=== PATIENT | female | born 1965 | race Caucasian/White ===

== ENCOUNTER 2020-11-08 10:25 | Outpatient (CLI) | payer OTHER, SELFPAY ==
--- NOTE | ~2020-11-08 | MM_ITS ---
EXAMINATION: MM screening cabrera BI w janelle HISTORY: Screening mammogram TECHNIQUE: Craniocaudal and mediolateral oblique 3-D tomosynthesis images were obtained and synthetic 2-D images were generated. CAD analysis was submitted and interpreted. COMPARISON: , 12/27/2016, 12/16/2015 bilateral digital screening mammogram examinations BREAST PARENCHYMAL COMPOSITION: The breasts are heterogeneously dense, which may obscure small masses . FINDINGS: There is no evidence of suspicious mass, calcification, or architectural distortion to sugg est malignancy in either breast. There has been no suspicious interval change. IMPRESSION: 1. No mammographic evidence of malignancy. 2. Recommend routine screening mammography in one year. BI-RADS Category 1: Negative Reviewed, dictated and finalized at location A.
== END 2020-11-08 10:26 | disposition home or self-care (01) ==
LOC: ANHIMG 10:28
PROVIDERS: PCP Family Medicine; Visit Provider Family Medicine
DX: Z12.31 Encounter for screening mammogram for malignant neoplasm of breast (principal)
CPT/HCPCS: 77063; 77067

== ENCOUNTER 2021-11-30 23:13 | Observation (INO) | payer OTHER, SELFPAY ==
--- NOTE | ~2021-11-30 | US_ITS ---
EXAMINATION: US carotid duplex BI DATE: 12/01/2021 16:38 INDICATION: Left hemiparesis. Transient ischemic attack. TECHNIQUE: Grayscale, color Doppler, and pulsed Doppler images of the cervical carotid arteries were obtained. The degree of vessel stenosis is placed in one of the following categories: normal, <50%, 5 0-69%, >=70% but less than near-occlusion, near-occlusion, or total occlusion. Note that percent sten osis relative to normal distal artery lumen diameter is indirectly measured from velocity measurement s as described by Nestor, et al. Radiology 2003; 229:340-346. COMPARISON: None. FINDINGS: RIGHT: The right common carotid artery (CCA) peak systolic velocity (PSV) is 74 cm/s. The right internal car otid artery (ICA) PSV is 67 cm/s. The right ICA end-diastolic velocity (EDV) is 29 cm/s. The right IC A/CCA PSV ratio is 0.9. Grayscale and color Doppler images yield an estimate of <50% diameter reducti on from plaque in the ICA. There is antegrade flow in the right vertebral artery. LEFT: The left CCA PSV is 84 cm/s. The left ICA PSV is 86 cm/s. The left ICA EDV is 29 cm/s. The left ICA/C CA PSV ratio is 1.0. Grayscale and color Doppler images yield an estimate of <50% diameter reduction from plaque in the ICA. There is antegrade flow in the left vertebral artery. IMPRESSION: 1. <50% stenosis in the right internal carotid artery. 2. <50% stenosis in the left internal carotid artery. Reviewed, dictated and finalized at location B.
--- NOTE | ~2021-11-30 | CT_ITS ---
EXAMINATION: CT brain wo con DATE: 12/01/2021 00:17 INDICATION: Transient ischemic episode with left-sided deficits TECHNIQUE: Computed tomography (CT) of the head was performed without intravenous contrast. Sagittal and coronal reconstructions were performed. The mA was adjusted according to patient size. Iterative reconstruction technique was employed. The dose-length product was 605.33 mGy-cm. COMPARISON: None FINDINGS: No acute intracranial hemorrhage, acute infarction or abnormal extra axial fluid collection. Ventricl es are normal and symmetric. No mass/mass effect. The orbits, paranasal sinuses and mastoid air cells are normal. IMPRESSION: 1. Normal head CT. Reviewed, dictated and finalized at location A. IMPRESSION: 1. Normal head CT.
--- NOTE | ~2021-11-30 | XR_ITS ---
EXAMINATION: XR chest 2V DATE: 12/01/2021 00:19 INDICATION: Stroke protocol TECHNIQUE: PA and lateral views of the chest were obtained. COMPARISON: Chest radiograph dated 05/01/[address] dated 09/01/2018 FINDINGS: Chronic elevation of the left hemidiaphragm with mild compressive atelectasis along the left lung bas e. Mild linear discoid atelectasis medial right lung base. No other airspace opacities, pulmonary david ma, pleural effusion or pneumothorax. The cardiomediastinal silhouette is normal. Visualized bones an d soft tissues are unremarkable. IMPRESSION: 1. Chronic elevation left hemidiaphragm with mild bibasilar atelectasis. No other acute cardiopulmona ry disease. Reviewed, dictated and finalized at location A. IMPRESSION: 1. Chronic elevation left hemidiaphragm with mild bibasilar atelectasis. No oth er acute cardiopulmonary disease.
--- NOTE | ~2021-11-30 | MR_ITS ---
EXAMINATION: MR brain/brain stem wo/w con DATE: 12/01/2021 11:29 INDICATION: Transient ischemic attack. Left sided weakness and numbness. TECHNIQUE: Magnetic resonance imaging (MRI) of the brain and brainstem was performed without and with 15 mL MultiHance intravenous contrast. COMPARISON: Head CT 12/01/2021 FINDINGS: There is no intracranial hemorrhage, acute infarction, or abnormal intracranial mass lesion . The ventricles are normal in size. The mastoid air cells are normal. There is mild mucosal thickeni ng in the ethmoid sinuses. The orbits are normal. IMPRESSION: 1. Normal brain. Reviewed, dictated and finalized at location B. IMPRESSION: 1. Normal brain.
[2021-11-30 23:19] VITALS: BP 158/112; PULSE 85; RESP 16; TEMP 36.3; O2SAT 95
--- NOTE | 2021-11-30 23:35 | ED.WEAKNESS ---
HPI - Weakness General Chief complaint: Weakness Stated complaint: BACK PAIN, LT NUMBNESS Time Seen by Provider: 11/30/21 23:35 History of Present Illness HPI Narrative: The patient is a 56-year-old female with a history of thymic cancer status postresection, immunotherapy, agammaglobulinemia w/ monthly IVIG infusions, presenting to the emergency department for evaluation of intermittent left-sided weakness and numbness. Patient states initial symptoms began yesterday evening when patient was cooking dinner, she had acute onset left-sided lower facial numbness, weakness, decrease in director of retail strength in her left upper extremity, weakness and numbness in her left leg. Patient states that symptoms lasted for approximately 30 minutes before resolving on their own. She did call EMS and when EMS had arrived, she did refuse transport and had a reassuring exam. Patient did not fall. No slurred speech. No noticeable facial droop per family. Patient states that the symptoms then recurred tonight approximately 1 hour ago but have since resolved. The second episode did not last longer than 10 minutes. Patient states that she cannot feel her left leg and cannot move her left hand. Patient denies history of anticoagulation. She states that her thymic cancer was resected and she has no known active disease. She denies headache, vision changes, chest pain, palpitations, shortness of breath. No nausea or vomiting. Surgical history: Thymoma resection Related Data Home Medications Medication Instructions Recorded Confirmed prednisolone sodium phosphate 5 mg 5 mg PO QID 03/20/21 07/24/21 base/5 mL (6.7 mg/5 mL) oral soln vitamin B complex 1 tablet PO DAILY 03/20/21 07/24/21 Allergies Allergy/AdvReac Type Severity Reaction Status Date / Time acetaminophen AdvReac Unknown Unknown Verified 11/30/21 23:31 [From Lorcet (hydrocodone)] erythromycin base AdvReac Unknown Unknown Verified 11/30/21 23:31 hydrocodone AdvReac Unknown Unknown Verified 11/30/21 23:31 [From Lorcet (hydrocodone)] Review of Systems Review of Systems: CONSTITUTIONAL: Denies fever, chills, or sweats. EYES: Denies visual changes, redness, or discharge. ENT: Denies rhinorrhea, congestion, sore throat, or otalgia. CARDIOVASCULAR: Denies chest pain, palpitations, or edema. RESPIRATORY: Denies cough or dyspnea. GASTROINTESTINAL: Denies abdominal pain, nausea, vomiting, or diarrhea. GENITOURINARY: Denies dysuria or hematuria. SKIN: Denies rash or itching. MUSCULOSKELETAL: Denies back pain, joint pain, or myalgia. NEUROLOGIC: Denies headache, denies current numbness or weakness. [facility] Past Medical History Medical History (Updated 12/01/21 @ 04:04 by Nancy Weinstein MD) Agammaglobulinemia, acquired Good syndrome History of abnormal cervical Pap smear Low serum cortisol level Migraine Normal colonoscopy 04/20/19 Dr. Almaguer repeat in 10 years Thrombocytopenia Thymoma Family History Family History Sibling Family history of mental disorder Depression Hypertension Family history of elevated blood lipids Family history of cardiovascular disease Father Hypertension Family history of elevated blood lipids Mother Hypertension Family history of elevated blood lipids Family history of cardiovascular disease Grandparent Cerebrovascular accident Other Family history of hypercholesterolemia Social History Social History Alcohol intake: current Exam Narrative: GENERAL: Awake, alert, conversant HEAD: Normocephalic, atraumatic. EYES: PERRLA and EOMI. ENT: Nares clear, no rhinorrhea or epistaxis. Mucous membranes moist. NECK: Supple. CHEST: No respiratory distress, breathing even and non labored HEART: Regular rate, sinus rhythm ABDOMEN:Non distended, non tender EXTREMITIES: Normal range of motion. No edema. SKIN: Warm, dry, no
[2021-12-01] VITALS (7 sets, daily range): BP systolic 118–149; BP diastolic 81–95; PULSE 75–96; RESP 18; TEMP 36.4; O2SAT 97–100; BMI 26.2
--- NOTE | 2021-12-01 | ECG_ITS ---
Measurements Intervals [place] Rate: 79 P: 34 RI: 171 QRS: -49 QRSD: 85 T: -11 QT: 358 QTc: 411 Interpretive Statements SINUS RHYTHM LOW QRS VOLTAGE IN PRECORDIAL LEADS [QRS DEFLECTION < 1.0 mV IN CHEST LEADS] POSSIBLE RIGHT VENTRICULAR CONDUCTION DELAY [RSR (QR) IN V1/V2] LEFT ANTERIOR FASCICULAR BLOCK [QRS AXIS <= -45, QR IN I, RS IN II] POSSIBLE ANTERIOR MYOCARDIAL INFARCTION , OLD ABNORMAL ECG NO PREVIOUS ECG AVAILABLE FOR COMPARISON Electronically Signed On 12-01-2021 14:37:15 CDT by Elder Noble M.D.
--- NOTE | 2021-12-01 | ECHO_ITS ---
Patient Info Name: Candace Rojas Age: 56 years : 1965 Gender: Female Ht: 64 in Wt: 152 lbs BSA: 1.78 m2 HR: 86 bpm BP: 149 / 95 mmHg Technical Quality: Fair Exam Date: 12/01/2021 12:26 PM Exam Location: [facility] Pulmonary Exam Room: [facility] Patient Status: Outpatient Admit Date: 12/01/2021 Staff Ordering Physician: Elder Tucker MD Business Intelligence Reporting Analyst: Arianne Tran RDCS Attending Provider: Mckinley Bowden MD Referring Physician: Garrett RYAN; Exam Type: CA echo doppler w bubble study Study Info Indications - TIA Complete two-dimensional, color flow and Doppler transthoracic echocardiogram is performed with agitated saline. Contrast/Agitated Saline Contrast/Ag. Saline: Agitated Saline Amount: 20.00 ml Existing IV Access: Yes IV Access Condition: patent with no signs of infiltration Summary 1. Left ventricular chamber dimension is normal. 2. Left ventricular systolic function is normal, estimated at 65-70%. 3. The left ventricular diastolic function is grade I diastolic dysfunction. 4. E/e' 9 is minimally elevated. 5. There is trace tricuspid valve regurgitation. 6. No pulmonary hypertension, estimated pulmonary arterial systolic pressure is 38 mmHg. Left Ventricle E/e' 9 is minimally elevated. Left ventricular chamber dimension is normal. Left ventricular systolic function is normal, estimated at 65-70%. The left ventricular diastolic function is grade I diastolic dysfunction. Right Ventricle Right ventricular chamber dimension is normal. Right ventricular systolic function is normal. Left Atria Left atrial chamber dimension is normal. Right Atria Right atrial chamber dimension is normal. Atrial Septum Agitated saline injection with and without valsalva maneuver opacified right cardiac chambers without shunt to left cardiac chambers. Intact interatrial septum visualized by 2D and agitated saline imaging. Aortic Valve The aortic valve is trileaflet. There is no aortic valve stenosis. There is no aortic valve regurgitation. Pulmonic Valve There is no pulmonic regurgitation. Mitral Valve There is no mitral valve stenosis. There is no mitral valve regurgitation. Tricuspid Valve There is trace tricuspid valve regurgitation. No pulmonary hypertension, estimated pulmonary arterial systolic pressure is 38 mmHg. Pericardium/Pleural There is no pericardial effusion. Inferior Vena Cava Normal inferior vena cava with >50% collapse upon inspiration consistent with normal right atrial pressure, 5 mmHg. Aorta The aortic root size at the sinus of Valsalva is normal. Left Ventricular Outflow Tract Name Value Normal LVOT 2D LVOT Diameter 2.0 cm LVOT Doppler LVOT Peak Gradient 3 mmHg LVOT Mean Gradient 2 mmHg LVOT VTI 19 cm LVOT VTI/AV VTI Ratio 0.9 LVOT Stroke Volume 59 ml LVOT CO 12.1 l/min LVOT CI
[2021-12-01] MEDS: SODIUM CHLORIDE 0.9% IV 1,000 ML 999 ML IV CONT (00:21)
[2021-12-01 00:34] LABS: Glucose Point of Care 121 mg/dl (65-105)
[2021-12-01 00:38] LABS: Basophils Percent Auto 0.1 % (0.2-1.2); Hematocrit 41.8 % (37.0-47.0); Hemoglobin 13.8 g/dL (12.0-15.0); Immature Granulocyte Absolute 0.01 K/mm3 (0.00-0.031); Immature Granulocyte Percent A 0.1 % (0-0.5); Lymphocytes Absolute Auto 1.33 K/mm3 (0.9-3.2); Lymphocytes Percent Auto 19.2 % (18.3-44.2); Mean Corpuscular Hemoglobin 29.9 pg (26-34); Mean Corpuscular Volume 90.5 fl (80-100); Mean Platelet Volume 9.9 fl (7.4-10.4); Monocytes Absolute Auto 0.5 K/mm3 (0.1-0.6); Monocytes Percent Auto 7.2 % (2.6-8.5); Neutrophils Absolute Auto 5.1 K/mm3 (1.3-6.7); Neutrophils Percent Auto 73.4 % (45.5-73.1); Platelet Count Result 211 k/mm3 (150-375); Red Blood Count 4.62 M/mm3 (4.2-5.4); Red Cell Distribution Width 12.9 % (11.5-14.5); White Blood Count 6.9 K/mm3 (4.5-10.0)
[2021-12-01 00:48] LABS: Prothrombin Time 12.6 Seconds (11.1-14.7)
[2021-12-01 00:49] LABS: Partial Thromboplastin Time 27.5 SECONDS (22.3-36.8)
[2021-12-01 00:55] LABS: Anion Gap 9 mmol/L (8-16); Blood Urea Nitrogen 19 mg/dL (7-17); Calcium 9.3 mg/dL (8.4-10.2); Carbon Dioxide 26 mmol/L (22-30); Chloride 103 mmol/L (98-107); Estimated Glomerular Filt Rate > 60; Glucose 106 mg/dL (65-110); Potassium 3.8 mmol/L (3.4-5.0); Sodium 138 mmol/L (137-145)
[2021-12-01 03:51] LABS: Troponin I < 0.012 ng/mL (0.000-0.034)
[2021-12-01 03:53] LABS: SARS-CoV-2 RNA PCR Negative
--- NOTE | 2021-12-01 04:54 | ADMGEN ---
This patient, Candace Rojas, was admitted to [facility] Surg Room 332-01. Patient/family oriented to hospital policies and general routines including ID bracelet, bed and alarms, visiting hours, pain management, procedures, bathroom and other care routines, personal items, smoking policy, room service/diet, and visiting hours. Information on how to activate the Rapid Response Team has been discussed. Patient/Family are encouraged to report perceived risks to care and to ask questions if they do not understand what they are told or what they should do.
[2021-12-01] MEDS: ASPIRIN 81 MG CHEWABLE TABLET PO (08:37)
--- NOTE | 2021-12-01 10:58 | PCOTNOTE ---
Attempted to see for OT evaluation. Patient off floor for testing. Will continue to attempt.
--- NOTE | 2021-12-01 11:02 | PM.IMHP ---
H&P: HPI History of Present Illness Date/Time: 12/01/21 11:02 Chief Complaint: Left-sided arm and leg weakness The patient is a 56-year-old female with a history of thymic cancer status postresection, immunotherapy, agammaglobulinemia w/ monthly IVIG infusions, presenting to the emergency department for evaluation of intermittent left-sided weakness and numbness.? 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 Patient states that symptoms lasted for approximately 30 minutes before resolving on their own.? She did call EMS and when EMS had arrived, she did refuse transport and had a reassuring exam.? Patient did not fall.? No slurred speech.? No noticeable facial droop per family.? Patient states that the symptoms then recurred tonight approximately 1 hour ago but have since resolved.? The second episode did not last longer than 10 minutes.? Patient states that she cannot feel her left leg and cannot move her left hand.? Patient denies history of anticoagulation.? She states that her thymic cancer was resected and she has no known active disease.? She denies headache, vision changes, chest pain, palpitations, shortness of breath.? No nausea or vomiting. Review of Systems Review of Systems: 10 point ROS negative except as stated in HPI / Subjective PMFSH Past Medical History Medical History (Updated 12/01/21 @ 04:04 by Nancy Weinstein MD) Agammaglobulinemia, acquired Good syndrome History of abnormal cervical Pap smear Low serum cortisol level Migraine Normal colonoscopy 04/20/19 Dr. Almaguer repeat in 10 years Thrombocytopenia Thymoma Family History Family History (Updated 12/01/21 @ 04:56 by Rima Delgado RN) Sibling Family history of cardiovascular disease Family history of elevated blood lipids Depression Family history of mental disorder Hypertension Father Family history of elevated blood lipids Hypertension COPD (chronic obstructive pulmonary disease) Mother Family history of cardiovascular disease Family history of elevated blood lipids Hypertension Grandparent Cerebrovascular accident Other Family history of hypercholesterolemia Social History Social History Smoking status: Never smoker Alcohol intake: former Substance use: never Spiritual care concerns: No Meds Home Medications and Allergies Home Medications Medication Instructions Recorded Confirmed Type clotrimazole 10 mg edgar 10 mg mucous membrane USEASDIRECTD 12/01/21 12/01/21 History Allergies Allergy/AdvReac Type Severity Reaction Status Date / Time acetaminophen AdvReac Unknown Unknown Verified 12/01/21 05:21 [From Lorcet (hydrocodone)] erythromycin base AdvReac Unknown Unknown Verified 12/01/21 05:21 hydrocodone AdvReac Unknown Unknown Verified 12/01/21 05:21 [From Lorcet (hydrocodone)] Vital Signs Vital Signs - 24 hr 11/30/21 23:19 12/01/21 04:54 12/01/21 06:06 Temperature 97.4 F L 97.6 F Pulse Rate 85 88 Respiratory Rate 16 18 Blood Pressure 158/112 H 149/95 H Pulse Oximetry 95 100 Oxygen Delivery Room Air Room Air 12/01/21 09:35 12/01/21 08:00 Temperature Pulse Rate 86 Respiratory Rate Blood Pressure Pulse Oximetry Oxygen Delivery Room Air Exam Narrative: General: alert and oriented Psych: appropriate mood nad affect Eyes: PERRLA Neck: Trachea midline, no new lesions Skin: no changes Lungs: CTA Cardiac: Normal S1,S2, no MGR ABD: soft, nd, nt, nbs Ext: no new lesions, no cce Vasc: Pulses intact H&P: Results Labs Labs: Short CBC 12/01/21 Range/Units 00:31 WBC 6.9 (4.5-10.0) K/mm3 Hgb 13.8 (12.0-15.0) g/dL Hct 41.8 (37.0-47.0) % Plt Count 211 (150-375) k/mm3
--- NOTE | 2021-12-01 11:14 | PCPTNOTE ---
received orders for PT evaluation; EMR reviewed- pt ambulating in room to bathroom indep; discussed pt with ADOLPH Correa- she stated pt having numbness/ tingling, to paulina pt; when entered room, pt was up walking to the bathroom; she stated she did not have any issues with her legs or walking, is better; Skilled PT services not indicated; I called Dr Tucker and discussed pt with him; Discharge orders entered for pt;
--- NOTE | 2021-12-01 13:29 | P.CONNEU_ITS ---
Consult date: 12/01/21 Time Seen: 13:30 HPI: Candace Rojas is a 56 year old female [facility] Past Medical History Medical History (Updated 12/01/21 @ 04:04 by Nancy Weinstein MD) Agammaglobulinemia, acquired Good syndrome History of abnormal cervical Pap smear Low serum cortisol level Migraine Normal colonoscopy 04/20/19 Dr. Almaguer repeat in 10 years Thrombocytopenia Thymoma Family History Family History (Updated 12/01/21 @ 04:56 by Rima Delgado RN) Sibling Family history of cardiovascular disease Family history of elevated blood lipids Depression Family history of mental disorder Hypertension Father Family history of elevated blood lipids Hypertension COPD (chronic obstructive pulmonary disease) Mother Family history of cardiovascular disease Family history of elevated blood lipids Hypertension Grandparent Cerebrovascular accident Other Family history of hypercholesterolemia Social History Social History Smoking status: Never smoker Alcohol intake: former Substance use: never Spiritual care concerns: No Meds Home Medications and Allergies Home Medications Medication Instructions Recorded Confirmed Type clotrimazole 10 mg edgar 10 mg mucous membrane USEASDIRECTD 12/01/21 12/01/21 History Allergies Allergy/AdvReac Type Severity Reaction Status Date / Time acetaminophen AdvReac Unknown Unknown Verified 12/01/21 05:21 [From Lorcet (hydrocodone)] erythromycin base AdvReac Unknown Unknown Verified 12/01/21 05:21 hydrocodone AdvReac Unknown Unknown Verified 12/01/21 05:21 [From Lorcet (hydrocodone)] Vital Signs Vital Signs - 24 hr 11/30/21 23:19 12/01/21 04:54 12/01/21 06:06 Temperature 36.3 C L 36.4 C Pulse Rate 85 88 Respiratory Rate 16 18 Blood Pressure 158/112 H 149/95 H Pulse Oximetry 95 100 Oxygen Delivery Room Air Room Air 12/01/21 09:35 12/01/21 08:00 12/01/21 12:00 Temperature Pulse Rate 86 91 Respiratory Rate Blood Pressure Pulse Oximetry Oxygen Delivery Room Air Results Labs CBC & Chem 7: 12/01/21 00:31 12/01/21 00:31 Labs: Short CBC 12/01/21 Range/Units 00:31 WBC 6.9 (4.5-10.0) K/mm3 Hgb 13.8 (12.0-15.0) g/dL Hct 41.8 (37.0-47.0) % Plt Count 211 (150-375) k/mm3 BMP 12/01/21 00:31 Sodium 138 Potassium 3.8 Chloride 103 Carbon Dioxide 26 BUN 19 H Creatinine 0.60 L Glucose 106 Calcium 9.3 Cardiac Enzymes 12/01/21 Range/Units 00:31 Troponin I < 0.012 (0.000-0.034) ng/mL
--- NOTE | 2021-12-01 13:31 | WPDNEURCNPN ---
Assessment and Plan Assessment and plan (1) TIA (transient ischemic attack): Code(s): G45.9 - Transient cerebral ischemic attack, unspecified Status: Acute Plan 1. History of radical thymectomy with diagnosis of thymoma though she is not being treated of for diagnosis of so-called myasthenia gravis 2agammaglobulinemia 3 TIA Additional Plan Consider Doppler study of the carotid and echocardiogram in the meantime continue the medication as such Consult date: 12/01/21 Time Seen: 13:30 HPI: Candace Rojas is a 56 year old female admitted to the hospital through the emergency room with ongoing history of 1. Status post resection of carcinoma thymus 2. Ongoing immunotherapy 3. A g a global anemia. For the basic complains of intermittent left-sided weakness and numbness of [id number] duration while she was cooking dinner she noted acute onset of left-sided lower facial numbness weakness decrease in welfare manager strength in her left upper extremity and weakness and numbness in her left lower extremity the whole symptomatology lasting for about 30 minutes and subsequently resolving by itself . She had no slurred speech she did not fall he did not having facial droop the symptomatology returned [id number] ago. Her medication as an outpatient included prednisolone sodium 5 mg q.i.d. she has noted early allergic to Tylenol on erythromycin and hydrocodone initial review of symptoms was unremarkable she is a never smoker former alcohol intake, evaluation up until now revealed normal routine lab with BUN of 19 glucose of 121 negative serology for COVID abnormal MRI of the brain, chronic elevation of the left hemidiaphragm and at present receiving aspirin 81 mg daily Review of Systems Review of Systems: All systems reviewed & are unremarkable except as noted in HPI and below PMFSH Past Medical History Medical History (Updated 12/01/21 @ 13:40 by Alejandro Nava MD) Agammaglobulinemia, acquired Good syndrome History of abnormal cervical Pap smear Low serum cortisol level Migraine Normal colonoscopy 04/20/19 Dr. Almaguer repeat in 10 years Thrombocytopenia Thymoma Family History Family History (Updated 12/01/21 @ 04:56 by Rima Delgado RN) Sibling Family history of cardiovascular disease Family history of elevated blood lipids Depression Family history of mental disorder Hypertension Father Family history of elevated blood lipids Hypertension COPD (chronic obstructive pulmonary disease) Mother Family history of cardiovascular disease Family history of elevated blood lipids Hypertension Grandparent Cerebrovascular accident Other Family history of hypercholesterolemia Social History Social History Smoking status: Never smoker Alcohol intake: former Substance use: never Spiritual care concerns: No Meds Home Medications and Allergies Home Medications Medication Instructions Recorded Confirmed Type clotrimazole 10 mg edgar 10 mg mucous membrane USEASDIRECTD 12/01/21 12/01/21 History Allergies Allergy/AdvReac Type Severity Reaction Status Date / Time acetaminophen AdvReac Unknown Unknown Verified 12/01/21 05:21 [From Lorcet (hydrocodone)] erythromycin base AdvReac Unknown Unknown Verified 12/01/21 05:21 hydrocodone AdvReac Unknown Unknown Verified 12/01/21 05:21 [From Lorcet (hydrocodone)] Vital Signs Vital Signs - 24 hr 11/30/21 23:19 12/01/21 04:54 12/01/21 06:06 Temperature 36.3 C L 36.4 C Pulse Rate 85 88 Respiratory Rate 16 18 Blood Pressure 158/112 H 149/95 H Pulse Oximetry 95 100 Oxygen Delivery Room Air Room Air 12/01/21 09:35 12/01/21 08:00 12/01/21 12:00 Temperature Pulse Rate 86 91 Respiratory Rate Blood Pressure Pulse Oximetry Oxygen Delivery Room Air Exam Narrative: Revealed her to be awake alert cooperative in no obvious acute distress, head normocephalic
[2021-12-02] VITALS: PULSE 75
[2021-12-02 04:00] VITALS: PULSE 110
[2021-12-02 06:00] VITALS: BP 121/79; PULSE 89; RESP 18; TEMP 36.4; O2SAT 96
[2021-12-02 08:00] VITALS: PULSE 74
[2021-12-02] MEDS: ASPIRIN 81 MG CHEWABLE TABLET PO (08:18)
--- NOTE | 2021-12-02 09:49 | PM.DS ---
DS: Admitting Diagnosis Discharge Date December 02, 2009 Admitting Diagnosis TIA DS: Discharge Diagnosis Discharge Diagnosis (1) Left-sided weakness: Code(s): R53.1 - Weakness Status: Acute (2) Thymoma: Code(s): D49.89 - Neoplasm of unspecified behavior of other specified sites Status: Acute (3) Agammaglobulinemia, acquired: Code(s): D80.1 - Nonfamilial hypogammaglobulinemia Status: Acute DS: Summary Hospital Course Hospital Course: The patient is 56-year-old female came in with left arm and left leg weakness. Short-lived less than 24 hr. This is intermittent has happened twice. Neurology was consulted and workup was essentially negative. Diagnosis likely TIA. Aspirin Plavix on discharge. follow with Neurology Time Spent with Patient Time attestation: Total time spent providing and/or coordinating discharge services: Discharge Plan Discharge Attending physician on discharge: Elder Tucker Consulting providers: Alejandro Nava Discharging Clinician: Eledr Tucker Patient Disposition: Home, Self-Care Activity: no preference Diet: as tolerated Patient Instructions: Antibiotic Form Stand Alone Forms: General Discharge Information Follow-up/Referrals: Alejandro Nava MD [Physician] - Discharge Medications: New clopidogrel [Plavix] 75 mg Tablet 75 mg PO DAILY 21 Days Qty: 21 0RF aspirin [Children's Aspirin] 81 mg Tablet,Chewable 81 mg PO DAILY@0800 30 Days Qty: 30 0RF Discontinued clotrimazole 10 mg edgar 10 mg mucous membrane USEASDIRECTD Rx Instructions: place 1 lozenge between cheeks and gums five times daily Date of admission: 12/01/21 04:26 Primary Care Provider: Fabi Puente Admitting Provider: Mckinley Bowden V. Attending physician on admission: Mckinley Bowden V. Condition: Stable
== END 2021-12-02 10:20 | disposition home or self-care (01) ==
LOC: ANHED 12-01 04:04 → ANH3MEDSUR 12-02 09:48
PROVIDERS: Admitting Provider Internal Medicine; Emergency Provider Emergency Medicine; PCP Family Medicine; Visit Provider Chiropractor
DX: R53.1 Weakness (principal); M54.9 Dorsalgia, unspecified; R20.0 Anesthesia of skin; Z79.52 Long term (current) use of systemic steroids; Z85.238 Personal history of other malignant neoplasm of thymus; D80.1 Nonfamilial hypogammaglobulinemia; Z20.822 Contact with and (suspected) exposure to COVID-19
CPT/HCPCS: 36415; 70450; 70553; 71046; 80048; 82948; 84484; 85025; 85610; 85730; 93005; 93306; 93880; 96360; 96375; 97165; 99285; A9270; A9577; C9803; G0378; J7030; U0003; U0005

== ENCOUNTER 2022-01-29 09:08 | Outpatient (CLI) | payer OTHER, SELFPAY | END 2022-01-29 09:09 | disposition home or self-care (01) | LOC: ANHGOSHLAB 09:09 | PROVIDERS: PCP Family Medicine; Visit Provider Physician Assistant | DX: E53.8 Deficiency of other specified B group vitamins (principal) | CPT/HCPCS: 36415; 82607 ==

== ENCOUNTER 2023-01-31 08:00 | Outpatient (CLI) | payer OTHER, SELFPAY ==
--- NOTE | ~2023-01-31 | CT_ITS ---
EXAMINATION: CTA brain carotid DATE: 01/31/2023 08:35 INDICATION: Left upper extremity weakness. Transient ischemic attack. TECHNIQUE: Computed tomographic angiography (CTA) of the head was performed without and with 100 mL O mnipaque-350 intravenous contrast. CTA of the neck was performed with intravenous contrast. Automated exposure control and iterative reconstruction technique were employed. The dose-length product was 1 723.59 mGy-cm. Maximum intensity projection and volume rendered 3D-reconstructions were created by rj thomas technologist on a separate workstation. COMPARISON: Head CT 12/01/2021, brain MRI 12/01/2021 FINDINGS: HEAD CTA: There is no intracranial hemorrhage, acute infarction, or abnormal intracranial mass lesion . The ventricles are normal in size. The paranasal sinuses are clear. The orbits are normal. The mast oid air cells are normal. The vertebral arteries are codominant. There is no significant stenosis of basilar artery or the posterior cerebral arteries. The posterior communicating arteries are normal. T here is no significant stenosis of the intracranial internal carotid arteries or anterior or middle c erebral arteries. Anterior communicating artery is normal. There is no aneurysm. NECK CTA: There is mild atelectasis in the lungs. There are no pathologically enlarged lymph nodes. T here is no significant stenosis of the vertebral arteries. There is minimal plaque in the proximal in ternal carotid arteries. There is 0% stenosis of the proximal right internal carotid artery relative to normal distal artery lumen diameter (NASCET criteria). There is 0% stenosis of the proximal left i nternal carotid artery relative to normal distal artery lumen diameter. There is mild cervical spondy losis. IMPRESSION: 1. Normal brain. No aneurysm or significant intracranial arterial stenosis. 2. 0% stenosis of the proximal internal carotid arteries relative to normal distal artery lumen diame ters (NASCET criteria). Reviewed, dictated and finalized at location A. IMPRESSION: 1. Normal brain. No aneurysm or significant intracranial arterial stenosis. 2. 0% stenosis of the proximal internal carotid arteries relative to normal dis ruthy artery lumen diameters (NASCET criteria).
--- NOTE | ~2023-01-31 | MR_ITS ---
EXAMINATION: MR brain/brain stem wo con DATE: 01/31/2023 08:59 INDICATION: Left upper extremity weakness. Transient ischemic attack. TECHNIQUE: Magnetic resonance imaging (MRI) of the brain and brainstem was performed without intraven ous contrast. COMPARISON: Brain MRI 12/01/2021, head CT 01/31/2023 FINDINGS: There is no intracranial hemorrhage, acute infarction, or abnormal intracranial mass lesion . There is a punctate focus of increased T2-weighted signal intensity in the right frontal lobe white matter, which is normal as an isolated finding. The ventricles are normal in size. There is a mucous retention cyst in right maxillary sinus. The orbits are normal. The mastoid air cells are normal. IMPRESSION: 1. Normal brain. Reviewed, dictated and finalized at location A. IMPRESSION: 1. Normal brain.
[2023-01-31 08:26] LABS: Estimated Glomerular Filt Rate > 60
== END 2023-01-31 08:01 | disposition home or self-care (01) ==
PROVIDERS: PCP Family Medicine; Visit Provider Student in an Organized Health Care Education/Training Program
DX: G45.9 Transient cerebral ischemic attack, unspecified (principal)
CPT/HCPCS: 70496; 70498; 70551; Q9967

== ENCOUNTER 2023-04-05 09:04 | Outpatient (CLI) | payer OTHER, SELFPAY ==
--- NOTE | ~2023-04-05 | MM_ITS ---
EXAMINATION: MM screening cabrera BI w janelle HISTORY: Screening TECHNIQUE: Craniocaudal and mediolateral oblique 3-D tomosynthesis images were obtained and synthetic 2-D images were generated. CAD analysis was submitted and interpreted. COMPARISON: Comparison to multiple prior studies sequentially, with oldest reviewed study dated 08/2013. BREAST PARENCHYMAL COMPOSITION: The breasts are heterogeneously dense, which may obscure small masses . FINDINGS: There is no evidence of suspicious mass, calcification, or architectural distortion to sugg est malignancy in either breast. There has been no suspicious interval change. IMPRESSION: 1. No mammographic evidence of malignancy. 2. Recommend routine screening mammography in one year. BI-RADS Category 1: Negative Reviewed, dictated and finalized at location A.
== END 2023-04-05 09:05 | disposition home or self-care (01) ==
LOC: ANHIMG 09:06
PROVIDERS: PCP Family Medicine; Visit Provider Family Medicine
DX: Z12.31 Encounter for screening mammogram for malignant neoplasm of breast (principal)
CPT/HCPCS: 77063; 77067

== ENCOUNTER 2024-04-27 14:41 | Outpatient (CLI) | payer OTHER, SELFPAY ==
--- NOTE | ~2024-04-27 | MM_ITS ---
EXAMINATION: MM screening cabrera BI w janelle HISTORY: Screening mammogram TECHNIQUE: Craniocaudal and mediolateral oblique 3-D tomosynthesis images were obtained and synthetic 2-D images were generated. CAD analysis was submitted and interpreted. COMPARISON: 04/05/2023, 11/08/2020 BREAST PARENCHYMAL COMPOSITION:Dense: The breasts are heterogeneously dense, which may obscure small masses. FINDINGS: No suspicious mass, calcification, or architectural distortion are identified in either guillermina ast to suggest malignancy. There has been no suspicious interval change. IMPRESSION: No mammographic evidence of malignancy. Recommend routine screening mammography in one year. BI-RADS Category 1: Negative Reviewed, dictated and finalized at location . [facility]
== END 2024-04-27 14:42 | disposition home or self-care (01) ==
LOC: ANHIMG 14:44
PROVIDERS: PCP Family Medicine; Visit Provider Family Medicine
DX: Z12.31 Encounter for screening mammogram for malignant neoplasm of breast (principal)
CPT/HCPCS: 77063; 77067

== ENCOUNTER 2025-02-09 15:11 | Outpatient (CLI) | payer OTHER, SELFPAY ==
--- NOTE | ~2025-02-09 | US_ITS ---
EXAMINATION: US carotid duplex BI DATE: 02/09/2025 16:12 INDICATION: Transient cerebral ischemic attack TECHNIQUE: Grayscale, color Doppler, and pulsed Doppler images of the cervical carotid arteries were obtained. The degree of vessel stenosis is placed in one of the following categories: normal, <50%, 50-69%, >=70% but less than near- occlusion, near-occlusion, or total occlusion. Note that percent stenosis relative to normal distal artery lumen diameter is indirectly measured from velocity measurements as described by Nestor, et al. Radiology 2003; 229:340-346. Notes: Normal: Peak systolic velocity <125 centimeters/sec and no plaque <50%. Peak systolic velocity <125 (EDV <40; ICA/CCA PSV ratio <2.0; used these factors only a tandem lesions or low cardiac output or contralateral disease) 50-69 %: PSV 125-230 (EDV 40-100; ratio 2-4) >= 70% but less than near occlusion: PSV greater than 230 (EDV > 100; ratio> 4.0) Near Occlusion: PSV that is variable; markedly narrowed lumen Occlusion: Absent flow on color/spectral Doppler and no lumen on moses scale. COMPARISON: None. FINDINGS: RIGHT: The right common carotid artery (CCA) peak systolic velocity (PSV) is 83 cm/s. The right internal carotid artery (ICA) PSV is 89 cm/s. The right ICA end- diastolic velocity (EDV) is 44 cm/s. The right ICA/CCA PSV ratio is 1.1. The external carotid artery (ECA) PSV is 77 cm/s. There is antegrade flow in the right vertebral artery. LEFT: The left CCA PSV is 79 cm/s. The left ICA PSV is 134 cm/s. The left ICA EDV is 57 cm/s. The left ICA/CCA PSV ratio is 1.7. The ECA PSV is 60 cm/s. There is antegrade flow in the left vertebral artery. IMPRESSION: 1. Less than 50% stenosis in the right internal carotid artery by sonographic criteria. 2. 50-69% stenosis in the left internal carotid artery by sonographic criteria. Reviewed, dictated and finalized at location O. IMPRESSION: 1. Less than 50% stenosis in the right internal carotid artery by sonographic c riteria. 2. 50-69% stenosis in the left internal carotid artery by sonographic criteria.
--- OUTSIDE RECORDS SUMMARY | 2025-02-09 15:15 | XMS_ITS | Clinical Summary ---
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 Name Role Phone Fabi Puente MD Primary Care Provider + Fabi Puente MD Unavailable [phone] Herson Stern MD Unavailable [phone] Rian Samaniego MD Unavailable Haile England MD Unavailable Allergies Active Allergy Reactions Criticality Noted Date Comments Codeine Nausea & Vomiting Low 07/02/2018 Erythromycin Vomiting Low 05/26/2015 Hydrocodone Nausea only Low 06/27/2016 Medications immune globulin (GAMMAGARD S-D) 5 % recon soln Infuse 500 mL (25 g total) into a venous catheter every 28 (twenty-eight) days 5 each 09/06/19 19 Active acetaminophen (TYLENOL) 325 mg tablet Take 2 tablets (650 mg total) by mouth every 6 (six) hours as needed for pain Active ANUCORT-HC 25 mg suppository 1 suppository (25 mg total) as needed 06/15/20 19 Active fluconazole (DIFLUCAN) 100 mg tablet Take 1 tablet (100 mg total) by mouth as needed 11/21/19 22 Active multivitamin capsuleIndications:V itamin Deficiency Prevention Take 1 capsule by mouth as needed Active vitamin b complex tabletIndications:Vi tamin Deficiency Prevention Take 1 tablet by mouth as needed Active KRILL OIL ORAL Take 350 mg by mouth as needed Active baclofen (LIORESAL) 10 mg tablet Take 1 tablet (10 mg total) by mouth nightly 30 tablet 3 01/24/20 22 Active nystatin cream Apply 1 application topically as needed 02/01/20 22 Active aspirin 81 mg enteric coated tabletIndications:Ce rebral Thromboembolism Prevention Take 1 tablet (81 mg total) by mouth every morning Active chlorhexidine (PERIDEX) 0.12 % solution as needed 11/17/19 23 Active predniSONE (DELTASONE) 20 mg tablet Take 20mg by mouth once prior to IVIG infusion once a month. 12 tablet 12/25/19 23 Active lidocaine 2 % solution Apply topically 2 (two) times a day 01/03/20 23 Active nystatin ointment 08/14/19 24 Active fluocinonide (LIDEX) 0.05 % external solutionIndications: Seborrheic dermatitis, unspecified Apply topically 2 (two) times a day as needed for rash On scalp and behind ears 60 mL 03/05/20 24 Active prednisoLONE (ORAPRED) solution 15 mg/5 mLIndications:Lichen planus Swish in mouth and spit out TID. 237 mL 11 03/05/20 24 Active clotrimazole (MYCELEX) 10 mg trocheIndications:Or opharyngeal Candidiasis Take 5 times daily 150 Latha 03/09/20 24 Active triamcinolone (KENALOG) 0.1 % pasteIndications:Ero sive Lichen Planus Apply to sores in mouth prn 5 g 03/09/20 24 Active clobetasoL (TEMOVATE) 0.05 % gelIndications:Erosi ve oral lichen planus Apply twice daily to sores in the mouth when flaring 30 g 11 03/09/20 24 Active albuterol HFA (PROVENTIL HFA,VENTOLIN HFA,PROAIR HFA) 90 mcg/actuation inhaler Inhale 2 puffs every 4 (four) hours as needed for wheezing 8.5 g 03/18/20 24 025 Active ondansetron ODT (ZOFRAN-ODT) 4 mg disintegrating tablet Take 1 tablet (4 mg total) by mouth every 8 (eight) hours as needed for nausea or vomiting 30 tablet 03/18/20 24 Active EPINEPHrine 0.3 mg/0.3 mL auto-injection syringeIndications:A naphylaxis Inject 0.3 mL (0.3 mg total) into the muscle as instructed as needed for anaphylaxis Call 911 after use. 2 each 1 03/24/20 24 025 Active Symbicort 160-4.5 mcg/actuation inhaler Inhale 2 puffs 2 (two) times a day Rinse mouth with water after use. Do not swallow. 1 each 03/30/20 24 Active triamcinolone (KENALOG) 0.1 % ointmentIndications: Lichen planus Apply twice daily to lichen planus lesion on face for two weeks, then stop 30 g 1 09/24/19 25 Active mupirocin (BACTROBAN) 2 % ointmentIndications: Secondary impetiginization Use twice daily as needed on open areas of skin to prevent infection 30 g 11 09/30/19 25 Active clobetasoL (TEMOVATE) 0.05 % creamIndications:Lic hen planus Apply to affected area on back BID until resolved. 60 g 3 09/30/19 25 Active rosuvastatin (CRESTOR) 10 mg tablet TAKE 1 TABLET(10 MG) BY MOUTH DAILY 90 tablet 3 10/23/19 25 Active amLODIPine (NORVASC) 5 mg tablet TAKE 1 TABLET(5 MG) BY MOUTH DAILY 90 tablet 3 10/23/19 25 Active spironolactone (ALDACTONE) 50 mg tabletIndications:Ac ne vulgaris,Hirsutism Take 1 tablet (50 mg total) by mouth daily 30 tablet 5 10/28/19 25 026 Active Active Problems Problem Noted Date Diagnosed Date Secondary malignant neoplasm of right lung 11/17 Dyslipidemia 03/29/2024 Immunocompromised 03/27/2024 Palpitations 10/22/2023 TIA (transient ischemic attack) 10/22/2023 Overview (10/22/2023): Cryptogenic HTN (hypertension), 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 Dyslipidemia 03/10/2023 Wheezing 03/08/2023 Lung nodule 05/25/2022 Overview (05/25/2022): Added automatically from request for surgery [id number] Assessment & Plan (08/02/2022 7:52 AM WAREHOUSE PROCESSOR): S/P Robotic Assisted right middle Lobectomy, Mediastinal Lymph Node Dissection - D/C chest tube today - pain control - may be able to go home this afternoon if doing well 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 Abnormal laboratory test 07/12/2021 Assessment & Plan (07/14/2021 2:24 PM WAREHOUSE PROCESSOR): Afternoon cortisol is not diagnostic of adrenal insufficiency. However, her autoimmune disease puts her at increased risk for primary adrenal insufficiency and her steroid use (even topical and mucous membranes) puts her at risk for secondary adrenal insufficiency. Will check manan stim test to evaluate adrenal function. If normal, likely that topical steroid temporarily suppressed cortisol levels. Basal cell carcinoma (BCC) of left upper forehea d 04/08/2019 Good syndrome 09/05/2018 Assessment & Plan (07/14/2021 2:23 PM WAREHOUSE PROCESSOR): Increases risk of primary adrenal insufficiency. Currently being treated with IVIG, but no longer requiring steroids with this. Thymoma, malignant 07/10/2018 Cancer Staging:Pathologic:Stage Unknown(pT3, pNX) - Unsigned Overview (07/10/2018): Added automatically from request for surgery [id number] Dyspnea 07/04/2018 Herpes simplex virus (HSV) infection 06/14/2015 Lichen planus 06/14/2015 Assessment & Plan (07/14/2021 2:24 PM WAREHOUSE PROCESSOR): Currently using intraoral clobetasol, which could be suppressing cortisol levels. Acute postoperative pain Painful respiration Status post surgery Encounters Date Type Department Care Team Description 02/05/2025 9:00 AM CDT Infusion [facility] [address] [facility] 2nd Floor [address] [place] [address] Good syndrome (HCC) (Primary Dx) 02/05/2025 8:54 AM CDT - 02/05/2025 11:59 PM CDT Hospital Encounter [address] [address] Good syndrome (HCC); Dyslipidemia Discharge Disposition: Discharge to home or self care 02/05/2025 Results Follow-Up [facility] Medicine Cardiology [address] [facility] [address] [place] [phone] Maile Charles RMA Lipid panel 02/04/2025 Orders Only Health system Medicine Allergy and Immunology [address] [facility] [address] [place] [id number] Linh Velez MD 01/08/2025 9:00 AM CDT Infusion [facility] [address] [place] [address] Good syndrome (HCC) (Primary Dx) 12/11/2024 9:00 AM CDT Infusion [facility] [address] [place] [address] Good syndrome (HCC) (Primary Dx) 11/17/2024 10:30 AM CDT [facility] [address] [facility] [address] [place] [phone] Herson Stern MD Thymoma (Primary Dx); Secondary malignant neoplasm of right lung (HCC) 11/17/2024 7:58 AM CDT - 11/17/2024 11:59 PM CDT Hospital Encounter [facility] [address] [place] [address] Thymoma Discharge Disposition: Discharge to home or self care 11/17/2024 Orders Only Health system Medicine Surgery [address] [facility] Floor 5 [place] [phone] Bing Tellez, LUIS A Thymoma (Primary Dx) 11/16/2024 Results Follow-Up Health system Medicine Cardiology [address] [facility] [address] [place] [phone] Maile Charles RMA Basic metabolic panel, eGFR 11/13/2024 9:00 AM CDT Infusion [facility] [address] [facility] 2[address] Floor [address] [place] [address] Good syndrome (HCC) (Primary Dx) 11/13/2024 8:58 AM CDT - 11/13/2024 11:59 PM CDT Hospital Encounter [facility] [address] [place] [address] Hypokalemia Discharge Disposition: Discharge to home or self care from Last 3 Months Immunizations Immunization Administration Dates Next Due Influenza, Quadrivalent, Carla l Culture-based MDCK, Antibiotic Free, Intramuscular 04/11/2020 Influenza, Quadrivalent, Carla l Culture-based MDCK, Preservative Free, Antibiotic Free, Intramuscular 04/13/2021,03/18/2019 Influenza, Unspecified 09/20/2014,09/06/2014 Pneumococcal Conjugate Pcv20 03/06/2023 Pneumococcal Polysaccharide PPV23 09/03/2018 Tdap 08/09/2021 Surgical History Surgery Date Site/Laterality Comments PERCUTANEOUS NEEDLE BIOPSY LUNG LEFT 07/03/2018 Left THYMECTOMY 07/18/2018 SKIN CANCER EXCISION COLONOSCOPY 2018 Medical History Medical History Date Comments GERD (gastroesophageal reflux disease) Lichen planus oral Spina bifida TIA (transient ischemic attack) H/O thymoma Good's syndrome (HCC) Basal cell carcinoma (BCC) of scalp Dental disease I've had 2 crowns crack this yea r Fracture of nasal bones when I was 3 years old Dizziness sometimes off balanc e also, I think it is my meds Headache sometimes Pulmonary nodule Family History Medical History Relation Name Comments Hypertension Brother Gyroney COPD Father Cancer Father's Sister Saima Heart attack Maternal Grandfather Heart attack Mother Natalya Hypertension Mother Natalya Osteoarthritis Mother Natalya Osteoarthritis Mother's Sister Maria D Breast cancer Other 1 Family history of malignant neoplasm of breast - Relation: Aunt (Added by TW Conv) Breast cancer Other 2 Family history of malignant neoplasm of breast - (Added by TW Conv) Hypertension Sister Roxann Anesthesia problems Neg Hx Relation Name Status Comments Brother Gyle Father Alive Father's Sister Saima Maternal Grandfather fatal M I in his mid 80s Mother Natalya Alive AR at 74 Mother's Sister Maria D Other 1 Other 2 Sister Roxann Social History Tobacco Use Types Packs/Day Years Used Date Smoking Tobacco: Never Passive Smoke Exposure: Never Smokeless Tobacco: Never Tobacco Cessation:Counseling Given: Not Answered Alcohol Use Standard Drinks/Week Comments No 0 (1 standard drink = 0.6 oz pur e alcohol) AUDIT-C Answer Date Recorded Frequency of Alcohol Consumption Not on file 08/21/2022 Q2: How many drinks containi ng alcohol do you have on a typical day when you are drinking? Patient does not drink Frequency of Binge Drinking Not on file 12/2022 Personal Safety Answer Date Recorded Have you ever been in or are you currently in a harmful physical or emotional relationship or is someone making you feel afraid or unsafe? Denies 10/22/2022 Comments No Sex and Gender Information Value Date Recorded Sex Assigned at Not on file Legal Sex Female 2:00 PM WAREHOUSE PROCESSOR Gender Identity Female 06/13/2021 9:06 AM WAREHOUSE PROCESSOR Sexual Orientation Not on file Obstetrics History Last Filed Vital Signs Vital Sign Reading Time Taken Comments Blood Pressure 117/80 09/30/2024 9:17 AM CDT Pulse 87 09/30/2024 9:17 AM CDT Temperature 36.2 C (97.2 F) 09/30/2024 8:33 AM CDT Respiratory Rate 16 07/30/2024 10:50 AM WAREHOUSE PROCESSOR Oxygen Saturation 98% 09/30/2024 9:17 AM CDT Inhaled Oxygen Concentration - - Weight 65.8 kg (145 lb) 09/30/2024 9:17 AM CDT Height 162.6 cm (5' 4) 09/30/2024 9:17 AM CDT Body Mass Index 24.89 09/30/2024 9:17 AM CDT Plan of Treatment Health Maintenance Due Date Last Done Comments Breast Cancer Screening-Mammogram 1965 Cervical Cancer Screening 1965 Depression Screening 1965 Hepatitis B Screening 10/17/1983 Regular Well Visit/Exam 18-64 10/17/1983 Zoster Vaccine (1 of 2) 1984 Covid-19 Vaccine (2023-2 5 season) 2024 02/21/2021, 10/04/2020, 09/13/2020 Influenza Vaccine (#1) 2025 , 04/11/2020, 03/18/2019, Additional history exists Colon Cancer Screening-Colonoscopy 04/30/2029 04/30/2019 DTaP/Tdap/Td Vaccine (3 - Td or Tdap) 08/09/2031 08/09/2021, 05/20/2008, 07/01/1997 Colon Cancer Screening-CT Colonography Discontinued 04/30/2019 Colon Cancer Screening-DNA Stool Discontinued 04/30/20 Colon Cancer Screening-FIT Discontinued 04/30/2019 Colon Cancer Screening-Sigmoidoscopy Discontinued 04/30/2019 Pneumococcal vaccine <65 Completed 03/06/2023, 08/16 Hepatitis C Screening Completed 03/08/2023 Medical Devices Implanted Type Area Saturator Tender Device Identifier Shelf Expiration Date Model / Serial / Lot GloNav [id number] Supple Tammi-Guard [employer] 4x4cm Patch Cardiovascular - [id number] - [id number] Implanted:Qty: 1 on 07/18/2018 by Herson Stern MD at [facility] Left: Chest GloNav 12/06/2022 [id number] / 0000 / [id number] Procedures Procedure Name Priority Date/Time Associated Diagnosis Comments LIPID PANEL Routine 02/05/2025 8:54 AM CDT Dyslipidemia IGG STAT 02/05/2025 8:54 AM CDT Good syndrome (HCC) CT CHEST WO CONTRAST Schedule Routine, Read Routine (OP Routine) 11/17/2024 8:02 AM CDT Thymoma EGFR Routine 11/13/2024 8:58 AM CDT Hypokalemia BASIC METABOLIC PANEL Routine 11/13/2024 8:58 AM CDT Hypokalemia HEPATITIS C RNA, QUANTITATIVE, PCR Routine 03/08/2023 11:47 AM CDT Need for hepatitis C screening test COLONOSCOPY 04/30/2019 6:54 AM WAREHOUSE PROCESSOR from Last 3 Months or Most Recently Relevant to Health Maintenance Results * IgG (02/05/2025 8:54 AM CDT) Immunoglobulin G 1,095 700 - 1,600 mg/dL Blood 02/05/2025 8:54 AM CDT 02/05/2025 12:46 PM CDT us Linh Velez MD LAB BLOOD ORDERABLES Fi nal Result [facility] [address] [facility] [place] [address] * Lipid panel (02/05/2025 8:54 AM CDT) Cholesterol 169 30 - 199 mg/dL Comment: Interpretive Data Ages < or = 19 years Acceptable: <170 mg/dL Borderline high: 170-199 mg/dL High: >or= 200 mg/dL Ages > or = 20 years Desirable: <200 mg/dL Borderline high: 200-239 mg/dL High: >or= 240 mg/dL Literature References: 1. Expert Panel on Integrated Guidelines for Cardiovascular Health and Risk Reduction in Children and Adolescents. Pediatrics 2011;128:S213 2. NCEP Expert Panel. Circulation 2004;110:227 Current Interpretive Data was last revised on 2018. Triglycerides 96 <=149 mg/dL [facility] Comment: Interpretive Data Ages < or = 9 years Acceptable: <75 mg/dL Borderline high: 75-99 mg/dL High: >or= 100 mg/dL Ages 10 to 20 years Acceptable: <90 mg/dL Borderline high: 90-129 mg/dL High: >or= 130 mg/dL Ages > or = 20 years Desirable: <150 mg/dL Borderline high: 150-199 mg/dL High: 200-499 mg/dL Very high: >or= 499 mg/dL Literature References: 1. Expert Panel on Integrated Guidelines for Cardiovascular Health and Risk Reduction in Children and Adolescents. Pediatrics 2011;128:S213 2. NCEP Expert Panel. Circulation 2004;110:227 Current Interpretive Data was last revised on 2018. HDL 77 >=40 mg/dL [facility] Comment: Interpretive Data Ages < or = 19 years Acceptable: >45 mg/dL Borderline low: 40-45 mg/dL Low: <40 mg/dL Ages > or = 20 years Desirable: >or= 60 mg/dL Low: <40 mg/dL Literature References: 1. Expert Panel on Integrated Guidelines for Cardiovascular Health and Risk Reduction in Children and Adolescents. Pediatrics 2011;128:S213 2. NCEP Expert Panel. Circulation 2004;110:227 Current Interpretive Data was last revised on 2018. LDL, calculated 75 <=129 mg/dL [facility] Comment: Interpretive Data Ages < or = 19 years Acceptable: <110 mg/dL Borderline high: 110-129 mg/dL High: >or= 130 mg/dL Ages > or = 20 years Optimal: <100 mg/dL Near optimal: 100-129 mg/dL Borderline high: 130-159 mg/dL High: >160 mg/dL Calculated using the Harjeet LDL-C estimating equation. This equation was implemented on 2024. Prior to this date LDL-C was estimated using the Friedewald equation. Literature References: 1. Expert Panel on Integrated Guidelines for Cardiovascular Health and Risk Reduction in Children and Adolescents. Pediatrics 2011;128:S213 2. NCEP Expert Panel. Circulation 2004;110:227 3. Harjeet Bullard et al. GENEVIEVE Cardiol. 2019October 15;5(5):540-548. doi: 10.1001/jamacardio.2020.0013 Current Interpretive Data was last revised on 2024. Non-HDL Cholesterol 92 mg/dL [facility] Comment: Interpretive Data Ages < or = 19 years Acceptable: <120 mg/dL Borderline high: 120-144 mg/dL High: >145 mg/dL Ages > or = 20 years When triglycerides are >200 mg/dL, Non-HDL cholesterol is a secondary target of therapy with treatment goals that are 30 mg/dL greater than the LDL cholesterol target. Literature References: 1. Expert Panel on Integrated Guidelines for Cardiovascular Health and Risk Reduction in Children and Adolescents. Pediatrics 2011;128:S213 2. NCEP Expert Panel. Circulation 2004;110:227 Current Interpretive Data was last revised on 2018. [facility]HDL [facility] 2 [facility] Blood 02/05/2025 8:54 AM CDT 02/05/2025 12:46 PM CDT Narrative [facility] - 02/05/2025 1:17 PM CDT Has the patient been fasting for 8 hours or more?->Yes us Memo Payne MD LAB BLOOD ORDERABLES Final Res ult [facility] [place] [address] * CT Chest WO Contrast (11/17/2024 8:02 AM CDT) Anatomical Region Laterality Modality Body N/A Computed Tomogra phy 11/17/2024 9:00 AM CDT Impressions 11/17/2024 9:00 AM CDT No evidence of metastatic disease Electronically signed by: Herson Martinez M.D. Narrative 11/17/2024 9:00 AM CDT EXAMINATION: Computed tomography of the chest without intravenous contrast HISTORY: Thymic neoplasm, follow-up TECHNIQUE: Transaxial computed tomographic images of the chest were obtained without intravenous contrast according to the standard protocol. COMPARISON: 11/19/2023 FINDINGS: A 2 mm right lower lobe pulmonary nodule is stable from prior examinations. No new pulmonary nodules are identified. No pleural nodularity is identified. No thoracic lymphadenopathy. The heart is mildly enlarged, unchanged. The thoracic aorta is normal in size. There is no pericardial or pleural effusion. Unchanged onh-lzil-xcnw soft tissue density within the anterior mediastinum. Unchanged appearance of median sternotomy. No suspicious osseous findings. Ill-defined lucencies in the T11 and T7 vertebral bodies are stable across multiple prior examinations and likely benign. Procedure Note Herson Martinez MD - 11/17/2024 EXAMINATION: Computed tomography of the chest without intravenous contrast HISTORY: Thymic neoplasm, follow-up TECHNIQUE: Transaxial computed tomographic images of the chest were obtained without intravenous contrast according to the standard protocol. COMPARISON: 11/19/2023 FINDINGS: A 2 mm right lower lobe pulmonary nodule is stable from prior examinations. No new pulmonary nodules are identified. No pleural nodularity is identified. No thoracic lymphadenopathy. The heart is mildly enlarged, unchanged. The thoracic aorta is normal in size. There is no pericardial or pleural effusion. Unchanged xho-spiz-opoe soft tissue density within the anterior mediastinum. Unchanged appearance of median sternotomy. No suspicious osseous findings. Ill-defined lucencies in the T11 and T7 vertebral bodies are stable across multiple prior examinations and likely benign. IMPRESSION: No evidence of metastatic disease Electronically signed by: Herson Martinez M.D. us Herson Stern MD IMG CT PROCEDURES Leela l Result * eGFR (11/13/2024 8:58 AM CDT) eGFR 79 >=60 mL/min/1. 73 m2 Comment: Interpretive Data Reference Interval Normal >/= 90 mL/min/1.73m2 Mildly decreased* 60 - 89 mL/min/1.73m2 Mildly to moderately decreased 45 - 59 mL/min/1.73m2 Moderately to severely decreased 30 - 44 mL/min/1.73m2 Severely decreased 15 - 29 mL/min/1.73m2 Kidney Failure < 15 mL/min/1.73m2 *Relative to young adult level Estimated glomerular filtration rate is determined by the 2020 CKD-EPI equation recommended by the National Kidney Foundation (A Unifying Approach to GFR Estimation: Recommendations of the NKF-ASK Task Force on Reassessing the Inclusion of Race in Diagnosing Kidney Disease, JASN 2020). The CKD-EPI equation should not be used for patients with unstable renal function and has not been validated in children and those over 70. Current interpretive data was last reviewed 2021. Blood 11/13/2024 8:58 AM CDT 11/13/2024 12:20 PM CDT us Memo Payne MD LAB BLOOD ORDERABLES Final Res ult [facility] [address] [facility] [place] [address] * Basic metabolic panel (11/13/2024 8:58 AM CDT) Pathologist [facility] Sodium 140 135 - 145 mmol/L Potassium, pl 4.3 3.3 - 4.9 mmol/L [facility] Comment:Repeated and Verifie d Chloride 100 97 - 110 mmol/L [facility] CO2 31 22 - 32 mmol/L [facility] Anion gap 9 2 - 15 mmol/L [facility] BUN 11 6 - 25 mg/dL [facility] Creatinine 0.85 0.60 - 1.10 mg/dL [facility] Glucose 84 70 - 199 mg/dL [facility] Comment: Interpretive Data Fasting glucose >/= 126 mg/dl is diagnostic for diabetes. Fasting is defined as no caloric intake for at least 8 hours. Fasting glucose between 100 mg/dl to 125 mg/dl is diagnostic of prediabetes. In a patient with classic symptoms of hyperglycemia or hyperglycemic crisis, a random glucose >/= 200 mg/dl is diagnostic for diabetes. In the absence of unequivocal hyperglycemia, results should be confirmed by repeat testing. The classification and Diagnosis of Diabetes Diabetes Care 2021; 46: S19-S40. Current interpretive data was last revised 2022. Calcium 9.7 8.5 - 10.3 mg/dL [facility] Blood 11/13/2024 8:58 AM CDT 11/13/2024 12:11 PM CDT us Memo Payne MD LAB BLOOD ORDERABLES Final Res ult [facility] [place] [address] * Hepatitis C (HCV) RNA PCR, quantitative Blood (03/08/2023 11:47 AM CDT) [facility] HCV RNA result Not Detected [facility] Comment: The quantifiable range of this assay is 15 IU/mL to 100,000,000 IU/mL (1.18 log IU/mL to 8.00 log IU/mL). Testing was performed by the RADHA 6800 HCV Test ([employer] Testing performed at [facility] Current Interpretive Data was last revised on 2021 Blood 03/08/2023 11:4 7 AM CDT 03/08/2023 12:19 PM CDT us Linh Velez MD LAB MICROBIOLOGY - GENE RAL ORDERABLES Final Result [facility] [place] [address] [facility] * COLONOSCOPY (04/30/2019 6:54 AM WAREHOUSE PROCESSOR) Anatomical Region Laterality Modality Other Narrative Procedure Note Elder Almaguer MD - 04/30/2019 6:54 AM CST [facility] Patient Name: Candace Rojas Procedure Date: 04/30/2019 6:54 AM Date of : 1965 Admit Type: Outpatient Age: 53 Gender: Female Attending MD: Elder Almaguer M.D. Room: [facility] OPERATING ROOM 02 Note Status: Finalized Procedure: Colonoscopy Indications: Screening for colorectal malignant neoplasm, This is the patient's first colonoscopy Referring MD: Fabi Puente MD Providers: Elder Almaguer M.D. Comorbidities thymoma s/p resection Medicines: Monitored Anesthesia Care Complications: No immediate complications. Estimated Blood Loss: Estimated blood loss: none. Procedure: Pre-Anesthesia Assessment: - Prior to the procedure, a History and Physical was performed, and patient medications, allergies and sensitivities were reviewed. The patient's toleranceof previous anesthesia was reviewed. - The risks and benefits of the procedure and the sedation options and risks were discussed with the patient. All questions were answered and informed consent was obtained. - Immediately prior to administration ofmedications, the patient was re-assessed for adequacy to receive sedatives. The benefits, risks and alternatives of theprocedure and sedation were discussed and informed consent was obtained. All questions were answered. Please referto the signed informed consent document in the medical record. The scope was passed under direct vision.The [id number] was introduced through the anusand advanced to the the terminal ileum. The colonoscopywas performed without difficulty. The patient toleratedthe procedure well. The quality of the bowel preparation was evaluated using the BBPS ([place] BowelPreparation Scale) with scores of: Right Colon = 3, Transverse Colon = 3 and Left Colon = 3 (entire mucosa seenwell with no residual staining, small fragments of stoolor opaque liquid). The total BBPS score equals 9. The bowel preparation used was Miralax. Bowel prep was administered using a split dose. Findings: The terminal ileum appeared normal. The colon (entire examined portion) appeared normal. Internal hemorrhoids were found during retroflexion. The hemorrhoids were small and Grade I (internal hemorrhoids that do not prolapse). Impression: - The examined portion of the ileum was normal. - The entire examined colon is normal. - Internal hemorrhoids. - No specimens collected. Recommendation: - Repeat colonoscopy in 10 years for screeningpurposes. Attending Participation: I personally performed the entire procedure. Electronically signed by Elder Almaguer MD Elder Almaguer M.D. 04/30/2019 12:21:17 PM . Number of Addenda: 0 Note Initiated On: 04/30/2019 6:54 AM Recognized by the [place] for promoting quality in endoscopy Elder Almaguer MD ENDOSCOPY PROCEDURES Final Result from Last 3 Months or Most Recently Relevant to Health Maintenance Insurance [employer] [place] [address] [address] [facility] H[facility]/PPO Address: [facility] [id number] [place] [address] [facility] CHOICE PLUS [facility] H[facility]/PPO Address: [address] [address] [place] [address] [employer] [facility] Advance Directives For more information, please contact: [phone] * Full Code (Latest Code Status on File) Date Activated Date Inactivated Comments 08/01/2022 3:36 PM 08/03/2022 3:16 PM * Full Code Date Activated Date Inactivated Comments 07/18/2018 5:53 PM 07/22/2018 7:11 PM * Full Code Date Activated Date Inactivated Comments 07/02/2018 11:58 PM 07/05/2018 6:12 PM Care Teams Tugboat Operator Relationship Specialty Start Date End Date Fabi Puente MD PCP - General 07/02/18 Fabi Puente MD Referring Physician Family Medicine 08/01/18 Herson Stern MD Surgeon Thoracic Surgery 08/12/18 Rian Samaniego MD [address] [place] [address] Radiation Oncologist Radiation Oncology 08/12/18 Haile England MD [address] [place] [address] Medical Oncologist/Powertrain Engineer Medical Oncology 08/12/18
--- OUTSIDE RECORDS SUMMARY | 2025-02-09 15:15 | XMS_ITS ---
Author Organization [place] [id number] Address [address] [place] [address] Care Team Providers Care Cyber Incident Responder Name Role Phone Fabi Puente MD Primary Care Provider + Fabi Puente MD Unavailable [phone] Herson Stern MD Unavailable Rian Samaniego MD Unavailable Haile England MD Unavailable [phone] Active Problems Problem Noted Date Diagnosed Date Secondary malignant neoplasm of right lung 11/17 Dyslipidemia 03/29/2024 Immunocompromised 03/27/2024 Palpitations 10/22/2023 TIA (transient ischemic attack) 10/22/2023 Overview (10/22/2023): Cryptogenic HTN (hypertension), 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 Dyslipidemia 03/10/2023 Wheezing 03/08/2023 Lung nodule 05/25/2022 Overview (05/25/2022): Added automatically from request for surgery [id number] Assessment & Plan (08/02/2022 7:52 AM CLIENT SERVICES ASSOCIATE): S/P Robotic Assisted right middle Lobectomy, Mediastinal Lymph Node Dissection - D/C chest tube today - pain control - may be able to go home this afternoon if doing well 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 Abnormal laboratory test 07/12/2021 Assessment & Plan (07/14/2021 2:24 PM CLIENT SERVICES ASSOCIATE): Afternoon cortisol is not diagnostic of adrenal [...] 09/05/2018 Assessment & Plan (07/14/2021 2:23 PM CLIENT SERVICES ASSOCIATE): Increases risk of primary adrenal insufficiency. Currently being treated with IVIG, but no longer requiring steroids with this. Thymoma, malignant 07/10/2018 Cancer Staging:Pathologic:Stage Unknown(pT3, pNX) - Unsigned Overview (07/10/2018): Added automatically from request for surgery [id number] Dyspnea 07/04/2018 Herpes simplex virus (HSV) infection 06/14/2015 Lichen planus 06/14/2015 Assessment & Plan (07/14/2021 2:24 PM CLIENT SERVICES ASSOCIATE): Currently using intraoral clobetasol, which could be suppressing cortisol levels. Acute postoperative pain Painful respiration Status post surgery Current Treatment and Therapy Plans No current plan information found. Other Current Plans ADULT PEMIVIBART - EMERGENCY USE AUTHORIZATION* Plan Start Date:04/10/2024 Plan Provider:Linh Velez MD Linked Problems Immunocompromised Treatment Medications No medications scheduled. IMMUNE GLOBULIN (GAMMAGARD S-D) 5%* Plan Start Date:02/25/2019 Plan Provider:Linh Velez MD Linked Problems Good syndrome (HCC) Treatment Medications immune globulin (GAMMAGARD S -D) 5 % Past Treatment and Therapy Plans Lifetime Dose Tracking * Chemical Lifetime Dose Automatic Entry Manual Entr y DLP 3,399 mGycm 3,399 mGycm 0 mGycm
--- OUTSIDE RECORDS SUMMARY | 2025-02-09 15:15 | XMS_ITS | Encounter Summary ---
Author Organization [facility] Address [address] [place] [address] Phone Care Team Providers Care Civil Service Worker Name Role Phone Fabi Puente MD Primary Care Provider + Fabi Puente MD Unavailable [phone] Herson Stern MD Unavailable [phone] Rian Samaniego MD Unavailable Haile England MD Unavailable [phone] Encounter Details Date Type Department Care Team (Late st Contact Info) Description 02/05/2025 Results Follow-Up [facility] Medicine Cardiology [address] [place] [address] Maile Charles RMA Lipid panel Social History Tobacco Use Types Packs/Day Years Used Date Smoking Tobacco: Never Passive Smoke Exposure: Never Smokeless Tobacco: Never Alcohol Use Standard Drinks/Week Comments No 0 [...] on file Legal Sex Female 2:00 PM SUPERVISORY TRAINING SPECIALIST Gender Identity Female 06/13/2021 9:06 AM SUPERVISORY TRAINING SPECIALIST Sexual Orientation Not on file documented as of this encounter Plan of Treatment Not on file documented as of this encounter Visit Diagnoses Not on filedocumented in this encounter Care Teams Civil Service Worker Relationship Specialty Start Date End Date Fabi Puente MD PCP - General 07/02/18 Fabi Puente MD Referring Physician Family Medicine 08/01/18 Herson Stern MD Surgeon Thoracic Surgery 08/12/18 Rian Samaniego MD [address] [place] [address] Radiation Oncologist Radiation Oncology 08/12/18 Haile England MD [address] [place] [address] Medical Oncologist/Rn Imcu Medical Oncology 08/12/18 documented as of this encounter
--- OUTSIDE RECORDS SUMMARY | 2025-02-09 15:15 | XMS_ITS | Clinical Summary ---
Author Organization [facility] Care Team Providers Care Cardiology Fellow Name Role Phone Unavailable Primary Care Provider Unavailabl e Social History Tobacco Use Types Packs/Day Years Used Date Smoking Tobacco: Never Assessed Comments Unknown Sex and Gender Information Value Date Recorded Sex Assigned at Not on file Legal Sex Female 10:25 PM CDT Gender Identity Not on file Sexual Orientation Not on file Plan of Treatment Not on file
--- OUTSIDE RECORDS SUMMARY | 2025-02-09 15:15 | XMS_ITS | Encounter Summary ---
Author Organization [facility] Address [address] [place] [address] Phone Care Team Providers Care Care Aid Name Role Phone Fabi Puente MD Primary Care Provider + Fabi Puente MD Unavailable [phone] Herson Stern MD Unavailable Rian Samaniego MD Unavailable Haile England MD Unavailable [phone] Encounter Details Date Type Department Care Team (Late st Contact Info) Description 02/04/2025 Orders Only [facility] Medicine Allergy and Immunology [address] [place] [address] Linh Velez MD [address] [facility] [address] [place] [address] Social History Tobacco Use Types Packs/Day Years [...] on file Legal Sex Female 2:00 PM CONNECTION WORKER Gender Identity Female 06/13/2021 9:06 AM CONNECTION WORKER Sexual Orientation Not on file documented as of this encounter Plan of Treatment Not on file documented as of this encounter Visit Diagnoses Not on filedocumented in this encounter Care Teams Care Aid Relationship Specialty Start Date End Date Fabi Puente MD PCP - General 07/02/18 Fabi Puente MD Referring Physician Family Medicine 08/01/18 Herson Stern MD Surgeon Thoracic Surgery 08/12/18 Rian Samaniego MD [address] [place] [address] Radiation Oncologist Radiation Oncology 08/12/18 Haile England MD [address] [place] [address] Medical Oncologist/Oleomargarine Maker Medical Oncology 08/12/18 documented as of this encounter
--- OUTSIDE RECORDS SUMMARY | 2025-02-09 15:15 | XMS_ITS | Encounter Summary ---
Author Organization [facility] Address [address] [place] [address] Phone Care Team Providers Care Coding Technician Name Role Phone Fabi Puente MD Primary Care Provider + Fabi Puente MD Unavailable [phone] Herson Stern MD Unavailable Rian Samaniego MD Unavailable Haile England MD Unavailable [phone] Encounter Details Date Type Department Care Team (Latest Contact Info) Description 12/01/2021 Orders Only [facility] Scanning, Provider Social History Tobacco Use Types Packs/Day Years Used Date Smoking Tobacco: Never Smokeless Tobacco: Never Alcohol Use Standard Drinks/Week Comments No 0 (1 standard drink = 0.6 oz pur e alcohol) Comments No Sex and Gender Information Value Date Recorded Sex Assigned at Not on file Legal Sex Female 2:00 PM STEEL CUTTER Gender Identity Female 06/13/2021 9:06 AM STEEL CUTTER Sexual Orientation Not on file documented as of this encounter Plan of Treatment Not on file documented as of this encounter Procedures Procedure Name Priority Date/Time Associated Diagnosis Comments CARDIOLOGY DOCUMENT SCAN 12/01/2021 documented in this encounter Results * CARDIOLOGY DOCUMENT SCAN (12/01/2021) Anatomical Region Laterality Modality Other us Provider Scanning CV CARDIAC SERVICES PROCEDURES Edited Result - Final documented in this encounter Visit Diagnoses Not on filedocumented in this encounter Additional Health Concerns Infection Onset Date Last Indicated Resolved Time COVID: Suspected 10/22/2022 10/22/2022 10/22/2022 3:59 PM CDT Parainfluenza, droplet 10/22/2022 10/22/202210/29 3:05 AM CDT documented as of this encounter Care Teams Coding Technician Relationship Specialty Start Date End Date Fabi Puente MD PCP - General 07/02/18 Fabi Puente MD Referring Physician Family Medicine 08/01/18 Herson Stern MD Surgeon Thoracic Surgery 08/12/18 Rian Samaniego MD [address] [place] [address] Radiation Oncologist Radiation Oncology 08/12/18 Haile England MD [address] [place] [address] Medical Oncologist/Soaking Room Operator Medical Oncology 08/12/18 documented as of this encounter
--- OUTSIDE RECORDS SUMMARY | 2025-02-09 15:15 | XMS_ITS | Encounter Summary ---
Author Organization [facility] Address [address] [place] [address] Phone Care Team Providers Care Candle Wrapper Name Role Phone Fabi Puente MD Primary Care Provider + Fabi Puente MD Unavailable [phone] Herson Stern MD Unavailable [phone] Rian Samaniego MD Unavailable [phone] Haile England MD Unavailable [phone] Encounter Details Date Type Department Care Team (Latest Contact Info) Description 01/29/2022 Orders Only [facility] Scanning, Provider Social History Tobacco Use Types Packs/Day Years Used Date Smoking Tobacco: Never Smokeless Tobacco: Never Alcohol Use Standard Drinks/Week Comments No 0 (1 standard drink = 0.6 oz pur e alcohol) Comments No Sex and Gender Information Value Date Recorded Sex Assigned at Not on file Legal Sex Female 2:00 PM MANAGER FILE Gender Identity Female 06/13/2021 9:06 AM MANAGER FILE Sexual Orientation Not on file documented as of this encounter Plan of Treatment Not on file documented as of this encounter Procedures Procedure Name Priority Date/Time Associated Diagnosis Comments SCAN - LABS 01/29/2022 documented in this encounter Results * SCAN - LABS (01/29/2022) us Provider Scanning Final Result documented in this encounter Visit Diagnoses Not on filedocumented in this encounter Additional Health Concerns Infection Onset Date Last Indicated Resolved Time COVID: Suspected 10/22/2022 10/22/2022 10/22/2022 3:59 PM CDT Parainfluenza, droplet 10/22/2022 10/22/202210/29 3:05 AM CDT documented as of this encounter Care Teams Candle Wrapper Relationship Specialty Start Date End Date Fabi Puente MD PCP - General 07/02/18 Fabi Puente MD Referring Physician Family Medicine 08/01/18 Herson Stern MD Surgeon Thoracic Surgery 08/12/18 Rian Samaniego MD [address] [place] [address] Radiation Oncologist Radiation Oncology 08/12/18 Haile England MD [address] [place] [address] Medical Oncologist/Purchasing Manager Medical Oncology 08/12/18 documented as of this encounter
--- OUTSIDE RECORDS SUMMARY | 2025-02-09 15:15 | XMS_ITS | Encounter Summary ---
Author Organization [facility] Address [address] [place] [address] Phone Care Team Providers Care Clamp Carrier Operator Name Role Phone Fabi Puente MD Primary Care Provider + Fabi Puente MD Unavailable [phone] Herson Stern MD Unavailable [phone] Rian Samaniego MD Unavailable Haile England MD Unavailable [phone] Encounter Details Date Type Department Care Team (Latest Contact Info) Description 01/22/2024 Orders Only [facility] Scanning, Provider [...] on file Legal Sex Female 2:00 PM DIRECTOR ALLIANCE MARKETING Gender Identity Female 06/13/2021 9:06 AM DIRECTOR ALLIANCE MARKETING Sexual Orientation Not on file documented as of this encounter Plan of Treatment Not on file documented as of this encounter Procedures Procedure Name Priority Date/Time Associated Diagnosis Comments SCAN - LABS 01/22/2024 documented in this encounter Results * SCAN - LABS (01/22/2024) us Provider Scanning Final Result documented in this encounter Visit Diagnoses Not on filedocumented in this encounter Care Teams Clamp Carrier Operator Relationship Specialty Start Date End Date Fabi Puente MD PCP - General 07/02/18 Fabi Puente MD Referring Physician Family Medicine 08/01/18 Herson Stern MD Surgeon Thoracic Surgery 08/12/18 Rian Samaniego MD [address] [place] [address] Radiation Oncologist Radiation Oncology 08/12/18 Haile England MD [address] [place] [address] Medical Oncologist/Fitness Services Manager Medical Oncology 08/12/18 documented as of this encounter
--- OUTSIDE RECORDS SUMMARY | 2025-02-09 15:15 | XMS_ITS | Clinical Summary ---
Author Organization [facility] Address [address] [place] [address] Care Team Providers Care Airline Customer Service Agent Name Role Phone Fabi Puente MD Primary Care Provider [phone] Source Comments [facility],non-owned Affiliates and Associated Physician Practices is amultiple site organization consisting of ambulatory clinics and hospital sitesin [place] and [place]. This disclosure is being madepursuant to the Care Everywhere program and may not contain all information available regarding this patient. Last updated 18.[facility] Allergies Active Allergy Reactions Criticality Noted Date Comments Amlodipine Base Other Medium 12/24/2022 Hives, terrible rxn - tight chest Codeine Nausea and/or Vomiting Low 07/02/2018 Erythromycin Anxiety Low 06/27/2016 Hydrocodone Nausea Low 06/27/2016 Rosuvastatin Other Medium 12/24/2022 Medications * Be aware that medications may not be up to date on this document. Alwaysverify current medications with the patient. CALCIUM PO Active clobetasol (TEMOVATE) 0.05 % gel APPLY TO SORES IN MOUTH TWICE DAILY NEEDED 06/30/19 22 Active clotrimazole (MYCELEX) 10 MG edgar DISSOLVE 1 TABLET BY MOUTH 5 TIMES DAILY 04/19/20 21 Active amLODIPine (Norvasc) 5 MG tablet Take 1 (one) tablet by mouth once daily 30 tablet 11 11/16/19 23 Active prednisoLONE (Prelone) 15 MG/5ML solution SWISH AND SPIT 5ML BY MOUTH FOUR TIMES DAILY 10/02/19 23 Active triamcinolone acetonide (Kenalog In Orabase) 0.1 % paste 0.25 inches by dental route 2 times daily 05/07/20 22 Active rosuvastatin (Crestor) 10 MG tablet Take 1 (one) tablet by mouth once daily 30 tablet 11 11/16/19 23 Active ondansetron, disintegrating , (Zofran ODT) 4 MG tablet Take 1 (one) tablet by mouth every 8 hours as needed 08/03/19 23 Active metroNIDAZOLE, topical, (Metrocream) 0.75 % cream 10/02/19 23 Active fluocinonide (Lidex) 0.05 % solution Apply to affected area 2 times daily as needed 05/07/20 22 Active chlorhexidine (Peridex) 0.12 % solution RINSE WITH 15ML BY MOUTH FOR 2 MINUTES THEN SPIT OUT TWICE DAILY 11/17/19 23 Active baclofen (Lioresal) 10 MG tablet Take 1 (one) tablet by mouth at bedtime 01/24/20 22 Active B Complex Vitamins (Vitamin B-Complex) TABS Take 1 tablet by mouth as needed Active aspirin EC (Ecotrin) 81 MG tablet Take 1 (one) tablet by mouth every morning Active albuterol HFA (Proventil; Ventolin; Proair) 108 (90 Base) MCG/ACT inhaler Inhale 2 (two) puffs by mouth every 4 hours as needed 10/23/19 23 Active mupirocin (Bactroban) 2 % ointment APPLY TOPICALLY TO THE AFFECTED AREA TWICE DAILY NEEDED FOR WOUND CARE 10/01/19 24 Active hydrocortisone (Anusol-HC) 25 MG suppositoryInd ications:Liche n planus 1 suppository twice weekly to vagina. 24 is 90 day supply. Vaginal Use 24 suppository 3 02/05/20 24 Active nystatin (Mycostatin) 622358 UNIT/GM ointmentIndica tions:Lichen planus Apply fingertip amount to mix with triamcinolone to apply to vulvar skin 2-3 times a week & PRN. 30 gram tube is 30 day supply 30 g 4 06/29/19 25 Active triamcinolone acetonide (Kenalog) 0.1 % ointmentIndica tions:Lichen planus Apply fingertip amount to mix with nystatin apply to vulvar skin 2-3 times a week & PRN sx flare 30 gram tube is 30 day supply 30 g 3 06/29/19 25 Active Symbicort 160-4.5 MCG/ACT inhaler INHALE 2 PUFFS BY MOUTH TWICE DAILY. RINSE MOUTH WITH WATER AFTER USE. 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 Dyslipidemia 03/10/2023 06/26/2023 HTN (hypertension), 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06/26 Lung nodule 05/25/2022 06/26/2023 Overview (06/26/2023): Added automatically from request for surgery [id number] Last Assessment & Plan: S/P Robotic Assisted right middle Lobectomy, Mediastinal Lymph Node Dissection - D/C chest tube today - pain control - may be able to go home this afternoon if doing well 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 06/26/2023 Basal cell carcinoma (BCC) of left forehead 03/18 Good syndrome 09/05/2018 Thymoma 07/10/2018 Overview (10/10/2020): Added automatically from request for surgery [id number] Urethral diverticulum 03/06/2017 Personal history of other infectious and parasit ic diseases 07/25/2016 History of candidiasis 07/25/2016 Other specified noninflammatory disorders of vag zachary 06/27/2016 Vaginal discharge 06/27/2016 Lichen planus 06/14/2015 Encounters Date Type Department Care Team Description 12/30/2024 1:00 PM CDT Office Visit [facility] - MANUFACTURING SPECIALIST [address] [place] [address] Angeles Paula MD Well woman exam with routine gynecological exam (Primary Dx) 12/30/2024 Travel from Last 3 Months Family History Medical History Relation Name Comments Hypertension Brother 1 Depression Brother 2 Schizophrenia Brother 2 COPD - Chronic Obstructive Pulmonary Disease Father None Known Maternal Grandfather None Known Maternal Grandmother DVT - Deep Vein Thrombosis Mother Hypertension Mother Cancer - Breast Paternal Aunt None Known Paternal Grandfather None Known Paternal Grandmother Hypertension Sister Relation Name Status Comments Brother 1 Alive Brother 2 Alive Father Alive Maternal Grandfather Maternal Grandmother Mother Alive Paternal Aunt Alive Paternal Grandfather Paternal Grandmother Sister Alive Social History Tobacco Use Types Packs/Day Years Used Date Smoking Tobacco: Never Passive Smoke Exposure: Past Smokeless Tobacco: Never Tobacco Cessation:Counseling Given: Not Answered Alcohol Use Standard Drinks/Week Comments Yes 0 (1 standard drink = 0.6 oz pur e alcohol) PHQ-2 Answer Date Recorded Patient Health Questionnaire-2 Score 0 12/23/2024 Comments No Sex and Gender Information Value Date Recorded Sex Assigned at Not on file Legal Sex Female 5:27 PM STRAPPER OPERATOR Gender Identity Female 05/02/2021 1:47 PM STRAPPER OPERATOR Sexual Orientation Not on file Last Filed Vital Signs Vital Sign Reading Time Taken Comments Blood Pressure 110/76 12/30/2024 12:50 PM CDT Pulse - - Temperature - - Respiratory Rate - - Oxygen Saturation - - Inhaled Oxygen Concentration - - Weight 66.7 kg (147 lb) 12/30/2024 12:50 PM CDT Height 162.6 cm (5' 4) 12/30/2024 12:50 PM CDT Body Mass Index 25.23 12/30/2024 12:50 PM CDT Plan of Treatment Upcoming Encounters Date Type Department Care Team (Late st Contact Info) Description 07/07/2025 9:50 AM STRAPPER OPERATOR Office Visit [facility] - MANUFACTURING SPECIALIST [address] [place] [id number] Frances Montague, WRAPAROUND FACILITATOR-EMERGENCY ROOM TECH [address] [place] [address] 01/05/2026 1:00 PM CDT Office Visit [facility] - MANUFACTURING SPECIALIST [address] [place] [address] Angeles Paula MD [address] [place] [address] Health Maintenance Due Date Last Done Comments COLOGUARD (AGES 45-75) - COLON CA SCREENING 1965 CT COLONOGRAPHY - COLON CA SCREENING 1965 FLEX SIG - COLON CA SCREENING 1965 LIPID TESTING 1965 MAMMOGRAM 1965 HIV SCREENING 1980 DTAP/TDAP/TD VACCINES (1 - Tdap) 1984 HEPATITIS B VACCINE (1 of 3 - 19+ 3-dose series) 1984 PNEUMOCOCCAL VACCINE 50+ (1 of 2 - PCV) 1984 ZOSTER VACCINE (1 of 2) 1984 FIT - COLON CA SCREENING 11/27/2018 11/27/2017 COVID-19 VACCINE ( season) 2024 03/25/2022, 02/21/2021, 10/04/2020, Additional history exists INFLUENZA VACCINE (#1) 2025 1, 04/11/2020, 03/18/2019, Additional history exists SCREENING FOR DIABETES 10/22/2025 3, 10/22/2022, 08/01/2022 COLON MONITORING 04/30/2029 04/30/2019 COLONOSCOPY - COLON CA SCREENING 04/30/2029 04/30/2019 Colorectal Cancer Screening 04/30/2029 PAP with HPV 12/30/2029 12/30/2024, 07/0 10/2022, 08/04/2021, Additional history exists HEPATITIS C SCREENING Completed 03/08/2023 DEPRESSION SCREENING Completed 06/29/2024, 12/20/19 23 HIB VACCINE Aged Out No longer eligi ble based on patient's age to complete this topic HPV VACCINE Aged Out No longer eligi ble based on patient's age to complete this topic MENINGOCOCCAL (Group B) VACCINE SHARED DECISION-MAKING Aged Out No longer eligible based on patient's age to complete this topic MENINGOCOCCAL GROUPS A/C/Y/W VACCINE Aged Out No longer eligible based on patient's age to complete this topic Procedures Procedure Name Priority Date/Time Associated Diagnosis Comments PAP IMAGE-GUIDED W HPV Routine 12/30/2024 1:30 PM CDT Well woman exam with routine gynecological exam HPV PANEL Routine 12/30/2024 1:30 PM CDT Well woman exam with routine gynecological exam from Last 3 Months Results * PAP IMAGE-GUIDED W HPV (12/30/2024 1:30 PM CDT) Case Report Gynecologic Cytology Report Case: [id number] Authorizing Provider: Angeles Paula MD Collected: 12/30/2024 01:30 PM Ordering Location: [facility] Physician [facility] - Received: 12/30/2024 01:30 PM MANUFACTURING SPECIALIST First Screen: Nathaniel Carias CT(ASCP) Rescreen: Lui Harris Specimen: THINPREP - IMAGE GUIDED, Cervix/Endocervix 01/04/2025 2:52 PM CDT [facility] LMP none 01/04/2025 2:52 PM CDT [facility] Menstrual Status Postmenopausal 12/16 2:52 PM CDT [facility] Specimen Adequacy Satisfactory for evaluation, endocervical/tranf ormation zone absent in a menopausal/post menopausal patient. 01/04/2025 2:52 PM CDT [facility] Categorization Negative for intraepithelial lesion or malignancy. 01/04/2025 2:52 PM CDT [facility] Interpretation TECHNICIAN INVENTORY SPECIALIST Negative for intraepithelial lesion or malignancy. 01/04/2025 2:52 PM CDT [facility] at 1452 CDT Other Atrophic changes. 025 2:52 PM CDT [facility] Pap Footnote The Pap Smear is a screening test. False positive and false negative results occur. Negative results do not preclude abnormalities, thus clinical correlation is required. This specimen was evaluated by the ThinPrep Imaging System along with an additional manual rescreening by a dry wall plasterer and/or pathologist. 01/04/2025 2:52 PM CDT [facility] Embedded Images 2:52 PM CDT [facility] Pathology/Cytolo gy MISCELLANEOUS SAMPLES / Unknown Collection / Unknown 12/30/2024 1:30 PM CDT 12/30/2024 1:30 PM CDT us Angeles Paula MD LAB - PATHOLOGY/CYTOLOGY O RDERABLES Final Result [facility] [address] [place] [address], [facility] [phone] * HPV PANEL (12/30/2024 1:30 PM CDT) High Risk HPV 16 NEGATIVE NEGATIVE 01/01/2025 7:13 AM CDT [facility] High Risk HPV 18 NEGATIVE NEGATIVE 01/01/2025 7:13 AM CDT [facility] High Risk HPV Other NEGATIVE NEGATIVE 01/01/2025 7:13 AM CDT [facility] Pathology/Cytolo gy MISCELLANEOUS SAMPLES / Unknown Collection / Unknown 12/30/2024 1:30 PM CDT 12/31/2024 11:46 AM CDT Narrative [facility] - 01/01/2025 7:13 AM CDT This test performed by Qualitative real-time Polymerase Chain Reaction (PCR). A negative result does not preclude the presence of HPV infection because results depend on adequate specimen collection, absence of inhibitors and sufficient DNA to be detected. Results should be interpreted in conjunction with other available laboratory and clinical data. This test amplifies DNA of HPV16, HPV18 and twelve other high risk types (31, 33, 35, 39, 45, 51, 52, 56, 58, 59, 66, 68) without differentiation. us Angeles Paula MD LAB - MICROBIOLOGY ORDERAB LES Final Result [facility] [address] [place] [address], [facility] [phone] from Last 3 Months Insurance [employer] Care Teams Airline Customer Service Agent Relationship Specialty Start Date End Date Fabi Puente MD [address] [place] [address] PCP - General 10/07/17
== END 2025-02-09 15:12 | disposition home or self-care (01) ==
PROVIDERS: PCP Family Medicine; Visit Provider Psychiatry & Neurology Neurology
DX: I65.23 Occlusion and stenosis of bilateral carotid arteries (principal)
CPT/HCPCS: 93880

== ENCOUNTER 2025-05-21 08:35 | Outpatient (CLI) | payer OTHER, SELFPAY ==
--- NOTE | ~2025-05-21 | MM_ITS ---
EXAMINATION: MM screening cabrera BI w janelle HISTORY: Screening. TECHNIQUE: Craniocaudal and mediolateral oblique 3-D tomosynthesis images were obtained and synthetic 2-D images were generated. CAD analysis was submitted and interpreted. COMPARISON: 2023, 2022, and 2020. BREAST PARENCHYMAL COMPOSITION: Dense: The breasts are heterogeneously dense FINDINGS: No suspicious masses are seen. There are no suspicious calcifications. No unexplained architectural distortion is seen. There are no skin or nipple abnormalities identified. There is no adenopathy seen on the images submitted. IMPRESSION: No mammographic or sonographic evidence to suggest malignancy is seen. The patient may return to screening mammography as per ACR guidelines. BI-RADS 1 - Negative. Reviewed, dictated and finalized at location B. GER LPN IMPRESSION: No mammographic or sonographic evidence to suggest malignancy is seen. The valdemar ent may return to screening mammography as per ACR guidelines. BI-RADS 1 - Negative.
== END 2025-05-21 08:36 | disposition home or self-care (01) ==
LOC: ANHFOHIMG 08:38
PROVIDERS: PCP Family Medicine; Visit Provider Family Medicine
DX: Z12.31 Encounter for screening mammogram for malignant neoplasm of breast (principal)
CPT/HCPCS: 77063; 77067